=== PATIENT | female | born 1940 | race Caucasian/White ===

== ENCOUNTER 2018-11-23 10:22 | Outpatient (CLI) | payer MEDICARE, BC | END 2018-11-23 23:59 | disposition home or self-care (01) | LOC: RAD 10:22 | PROVIDERS: ATTEND Family Medicine | DX: M48.54XA Collapsed vertebra, not elsewhere classified, thoracic region, initial encounter for fracture (principal); M47.894 Other spondylosis, thoracic region | CPT/HCPCS: 71046 ==

== ENCOUNTER 2021-04-10 14:40 | Day surgery (SDC) | payer MEDICARE, OTHER ==
[~2021-04-10] VITALS: Ht 152.4 cm; Wt 50.0 kg
[2021-04-10 14:55] VITALS: BP 158/94
[2021-04-10] MEDS ORDERED: MIDAZolam 1 MG/ML 5ML VIAL ONE (14:56)
[2021-04-10] MEDS ORDERED: LIDOcaine Viscous 15ml cup ONE (14:56)
[2021-04-10] MEDS ORDERED: fentaNYL/PF 50MCG/1 ML 2ML syringe ONE (14:56)
[2021-04-10] MEDS ORDERED: OMEP-50 PO (15:03)
[2021-04-10] MEDS ORDERED: CALC500T11 PO (15:04)
[2021-04-10 16:59] VITALS: BP 158/85
[2021-04-10 17:09] VITALS: BP 140/80
[2021-04-10 17:19] VITALS: BP 144/85
== END 2021-04-10 17:34 | disposition home or self-care (01) ==
LOC: GI LAB 14:40
PROVIDERS: ATTEND Internal Medicine Gastroenterology
DX: R12 Heartburn (principal); R13.10 Dysphagia, unspecified; K22.2 Esophageal obstruction; K21.00 Gastro-esophageal reflux disease with esophagitis, without bleeding; K44.9 Diaphragmatic hernia without obstruction or gangrene; Z79.899 Other long term (current) drug therapy
CPT/HCPCS: 43239; 43450; J2250; J3010; J7040; Z7512; 88305; 99152; A4620

== ENCOUNTER 2021-04-19 09:30 | Outpatient (CLI) | payer MEDICARE, OTHER ==
[~2021-04-19 09:30] MED LIST: CALC500T11 PO; OMEP-50 PO; barium sulfate 450ml oral suspension ONE; simethicone 125mg capsule ONE
== END 2021-04-19 23:59 | disposition home or self-care (01) ==
LOC: RAD 09:30
PROVIDERS: ATTEND Internal Medicine Gastroenterology
DX: K44.9 Diaphragmatic hernia without obstruction or gangrene (principal)
CPT/HCPCS: 74220

== ENCOUNTER 2025-03-18 13:04 | Outpatient (CLI) | payer MEDICARE, OTHER ==
[~2025-03-18 13:04] MED LIST changes: -OMEP-50 PO; +OMEP20CA16 PO; -barium sulfate 450ml oral suspension ONE; -simethicone 125mg capsule ONE
--- NOTE | 2025-03-18 14:03 | RADIOLOGY REPORT ---
DI CHEST,TWO VIEWS CLINICAL HISTORY: CHRONIC COUGH COMPARISON: None TECHNIQUE: Frontal and lateral view of the chest was obtained FINDINGS: Lines and Tubes: None Lungs: No focal consolidation. Pleura: No effusion. No pneumothorax. Cardiomediastinal contours: Unremarkable Bones: No acute osseous abnormality. IMPRESSION: No acute cardiopulmonary disease.
--- NOTE | 2025-03-18 14:06 | RADIOLOGY REPORT ---
INDICATION: RIGHT SIDE NECK PAIN TECHNIQUE: 6 views of the cervical spine were obtained. COMPARISON: None FINDINGS: The cervical spine is visualized from C1-C7. There is loss of the normal cervical lordosis which can be positional. No fractures or subluxations are identified. Multilevel degenerative changes of the spine Alignment appears unremarkable. Prevertebral soft tissues are within normal limits. IMPRESSION: No acute fracture or subluxation
== END 2025-03-18 23:59 | disposition home or self-care (01) ==
LOC: RAD 13:04
PROVIDERS: ATTEND Nurse Practitioner Family
DX: R05.3 Chronic cough (principal); Z00.01 Encounter for general adult medical examination with abnormal findings; M54.2 Cervicalgia
CPT/HCPCS: 71046; 72052

== ENCOUNTER 2025-05-09 10:46 | Outpatient (CLI) | payer MEDICARE ==
[2025-05-09 11:13] LABS: MEAN PLATELET VOLUME 7.0 FL (7.4-10.4); RED CELL DISTRIBUTION WIDTH 13.1 % (11.5-14.5)
[2025-05-09 12:01] LABS: % IRON SATURATION 23.0 % (11-46)
== END 2025-05-09 23:59 | disposition home or self-care (01) ==
LOC: RAD 10:46
PROVIDERS: ATTEND Nurse Practitioner Family
DX: R71.8 Other abnormality of red blood cells (principal); E03.9 Hypothyroidism, unspecified
CPT/HCPCS: 82728; 83540; 83550; 84439; 84443; 85025